=== PATIENT | female | born 1990 | race American Indian/Alaskan Native ===

== ENCOUNTER 2017-08-29 23:47 | Inpatient (IN) | payer MEDICAID, OTHER ==
[2017-08-30 00:55] LABS: Eosinophils % (Auto) 2.1 % (0.0-4.3); Hematocrit 26.2 % (30.3-42.9); Hemoglobin 8.1 gm/dl (10.1-14.3); Mean Corpuscular HGB Conc 31 % (30-34); Platelet Count 443 K/mm3 (140-440); Red Blood Count 4.07 M/mm3 (3.65-5.03); Red Cell Distribution Width 16.6 % (13.2-15.2); White Blood Count 12.2 K/mm3 (4.5-11.0)
[2017-08-30 00:58] LABS: Mean Corpuscular Hemoglobin 20 pg (28-32); Mean Corpuscular Volume 64 fl (79-97)
[2017-08-30 01:18] LABS: Alanine Aminotransferase 14 units/L (7-56); Albumin 3.9 g/dL (3.9-5); Albumin/Globulin Ratio 0.9 %; Alkaline Phosphatase 81 units/L (35-129); Anion Gap 20 mmol/L; BUN/Creatinine Ratio 17; Bilirubin,Total < 0.20 mg/dL (0.1-1.2); Blood Urea Nitrogen 10 mg/dL (7-17); Calcium 9.3 mg/dL (8.4-10.2); Carbon Dioxide 22 mmol/L (22-30); Glucose 92 mg/dL (65-100); Lipase 15 units/L (13-60); Potassium 3.7 mmol/L (3.6-5.0); Sodium 138 mmol/L (137-145); Total Protein 8.1 g/dL (6.3-8.2)
--- NOTE | 2017-08-30 03:10 | XRay Report ---
FINAL REPORT EXAM: XR ABDOMEN 2V HISTORY: abdominal pain COMPARISON: None available. FINDINGS: Supine and upright AP views of the abdomen obtained. No gross free air. Moderate stool in the right colon. Gas is scattered within the transverse colon which appears to be within physiologic limits. Paucity of small bowel gas and gas along the left colon. No gross pathological calcifications. IMPRESSION: Moderate stool in the right colon. Nonobstructive bowel gas pattern.
[2017-08-30 08:03] LABS: Bilirubin,Urine NEG (Negative); Blood,Urine NEG (Negative); Ketones,Urine 20 mg/dL (Negative); Leukocyte Esterase,Urine MOD (Negative); Mucus,Urine 3+ /HPF; Nitrite,Urine NEG (Negative)
[2017-08-30] MEDS ORDERED: NACL 0.9% 500 ML 500 ML IV ONE (10:34)
[2017-08-30] MEDS ORDERED: DILAUDID IV ONE (10:34)
[2017-08-30] MEDS ORDERED: TYLENOL PO ONE (10:35)
--- NOTE | 2017-08-30 10:35 | Emergency Department Report ---
ED Abdominal Pain HPI - General Chief Complaint: Abdominal Pain Stated Complaint: ABD PAIN Time Seen by Provider: 08/30/17 10:26 Source: patient, RN notes reviewed Mode of arrival: Ambulatory Limitations: No Limitations - History of Present Illness Initial Comments: This is a 27-year-old female who is previously unknown to this provider, does not have a primary care doctor or data center technician. Presents to the ER complaining of acute on chronic lower abdominal pain. The pain is sharp, increases with palpation and decreases with rest. No nausea, vomiting, diarrhea, urinary symptoms. Patient reports sexual activity with one partner, denies a history of gonorrhea/chlamydia that she is aware of. MD Complaint: abdominal pain -: Gradual Location: LLQ, RLQ, R flank Radiation: back Severity: moderate Severity scale (0 -10): 7 Quality: aching Consistency: constant Improves With: rest Worsens With: movement Associated Symptoms: anorexia. denies: nausea, vomiting, diarrhea, fever, dysuria, hematemesis, hematochezia, melena, hematuria, syncope - Related Data Home Medications Medication Instructions Recorded Confirmed Last Taken Docusate Sodium [Colace] 100 mg PO BID PRN 08/30/17 08/30/17 Unknown Allergies Allergy/AdvReac Type Severity Reaction Status Date / Time No Known Allergies Allergy Verified 01/07/16 23:55 ED Review of Systems ROS: Stated complaint: ABD PAIN Other details as noted in HPI Constitutional: malaise Eyes: denies: eye discharge ENT: denies: epistaxis Respiratory: denies: cough Cardiovascular: denies: chest pain Gastrointestinal: abdominal pain Genitourinary: denies: hematuria, discharge Musculoskeletal: back pain Skin: denies: lesions Neurological: weakness Psychiatric: anxiety ED Past Medical Hx - Past Medical History Hx Hypertension: No Hx Congestive Heart Failure: No Hx Diabetes: No Hx Deep Vein Thrombosis: No Hx Renal Disease: No Hx Sickle Cell Disease: No Hx Seizures: No Hx Asthma: Yes (last attack as a child) Hx COPD: No Hx HIV: No Additional medical history: Anemia, - Surgical History Past Surgical History?: No - Social History Smoking Status: Never Smoker Substance Use Type: None - Medications Home Medications: Home Medications Medication Instructions Recorded Confirmed Last Taken Type Docusate Sodium [Colace] 100 mg PO BID PRN 08/30/17 08/30/17 Unknown History ED Physical Exam - General Limitations: No Limitations General appearance: alert, in no apparent distress - Head Head exam: Present: atraumatic, normocephalic - Eye Eye exam: Present: normal appearance, EOMI. Absent: nystagmus - ENT ENT exam: Present: normal exam, normal orophraynx, mucous membranes moist, normal external ear exam - Neck Neck exam: Present: normal inspection, full ROM. Absent: tenderness, meningismus - Respiratory Respiratory exam: Present: normal lung sounds bilaterally. Absent: respiratory distress, chest wall tenderness - Cardiovascular Cardiovascular Exam: Present: regular rate, normal rhythm, normal heart sounds. Absent: systolic murmur, diastolic murmur, rubs, gallop - GI/Abdominal GI/Abdominal exam: Present: soft, tenderness, normal bowel sounds. Absent: distended, guarding, rebound, rigid, pulsatile mass - External exam: Present: normal external exam Speculum exam: Present: normal speculum exam, cervical discharge, vaginal bleeding Bi-manual exam: Present: cervical motion tendernes, adnexal tenderness, uterine tenderness, other (escorted by nursing Ely Jamil). Absent: normal bi- manual exam - Extremities Exam Extremities exam: Present: normal inspection, full ROM, normal capillary refill. Absent: pedal edema, joint swelling, calf tenderness - Back Exam Back exam: Present: normal inspection, full ROM. Absent: tenderness, CVA tenderness (R), paraspinal tenderness, vertebral tenderness - Neurological Exam Neurological exam: Present: alert, oriented X3, CN II-XII intact, other ( Extraocular movements intact. Tongue midline. No facial droop. Facial sensation intact to light touch in the V1, V2, V3 distribution bilaterally. 5 and 5 strength in 4 extremities.. Sensation is intact to light touch in 4 extremities.). Absent: motor sensory deficit - Psychiatric Psychiatric exam: Present: normal affect, normal mood - Skin Skin exam: Present: warm, dry, intact, normal color. Absent: rash ED Course Vital Signs 08/29/17 08/30/17 08/30/17 23:55 00:16 06:55 Temperature 98.2 F 98 F 98.4 F Pulse Rate 124 H 112 H 99 H Respiratory 22 18 Rate Blood Pressure 113/74 113/77 119/80 Blood Pressure [Left] O2 Sat by Pulse 100 100 99 Oximetry 08/30/17 08/30/17 08/30/17 06:56 08:50 11:31 Temperature 98.4 F 98.9 F 98.3 F Pulse Rate 99 H 82 86 Respiratory 18 16 16 Rate Blood Pressure 119/80 Blood Pressure 110/70 127/73 [Left] O2 Sat by Pulse 99 100 100 Oximetry 08/30/17 08/30/17 14:06 15:18 Temperature 98.4 F Pulse Rate 92 H 82 Respiratory 16 16 Rate Blood Pressure Blood Pressure 114/65 108/66 [Left] O2 Sat by Pulse 100 100 Oximetry ED Medical Decision Making - Lab Data Result diagrams: 08/30/17 00:26 08/30/17 00:26 Vital Signs 08/29/17 08/30/17 08/30/17 23:55 00:16 06:55 Temperature 98.2 F 98 F 98.4 F Pulse Rate 124 H 112 H 99 H Respiratory 22 18 Rate Blood Pressure 113/74 113/77 119/80 Blood Pressure [Left] O2 Sat by Pulse 100 100 99 Oximetry 08/30/17 08/30/17 08/30/17 06:56 08:50 11:31 Temperature 98.4 F 98.9 F 98.3 F Pulse Rate 99 H 82 86 Respiratory 18 16 16 Rate Blood Pressure 119/80 Blood Pressure 110/70 127/73 [Left] O2 Sat by Pulse 99 100 100 Oximetry Lab Results 08/30/17 08/30/17 08/30/17 Range/Units 00:26 00:26 00:26 WBC 12.2 H (4.5-11.0) K/mm3 RBC 4.07 (3.65-5.03) M/mm3 Hgb 8.1 L (10.1-14.3) gm/dl Hct 26.2 L (30.3-42.9) % MCV 64 L (79-97) fl MCH 20 L (28-32) pg MCHC 31 (30-34) % RDW 16.6 H (13.2-15.2) % Plt Count 443 H (140-440) K/mm3 Lymph % (Auto) 25.1 (13.4-35.0) % [place] % (Auto) 5.8 (0.0-7.3) % Eos % (Auto) 2.1 (0.0-4.3) % Baso % (Auto) 1.0 (0.0-1.8) % Lymph # 3.1 (1.2-5.4) K/mm3 [place] # 0.7 (0.0-0.8) K/mm3 Eos # 0.3 (0.0-0.4) K/mm3 Baso # 0.1 (0.0-0.1) K/mm3 Seg Neutrophils % 66.0 (40.0-70.0) % Seg Neutrophils # 8.0 H (1.8-7.7) K/mm3 Sodium 138 (137-145) mmol/L Potassium 3.7 (3.6-5.0) mmol/L Chloride 100.0 (98-107) mmol/L Carbon Dioxide 22 (22-30) mmol/L Anion Gap 20 mmol/L BUN 10 (7-17) mg/dL Creatinine 0.6 L (0.7-1.2) mg/dL Estimated GFR > 60 ml/min BUN/Creatinine Ratio 17 % Glucose 92 (65-100) mg/dL Lactic Acid (0.7-2.0) mmol/L Calcium 9.3 (8.4-10.2) mg/dL Total Bilirubin < 0.20 (0.1-1.2) mg/dL AST 15 (5-40) units/L ALT 14 (7-56) units/L Alkaline Phosphatase 81 (35-129) units/L Total Protein 8.1 (6.3-8.2) g/dL Albumin 3.9 (3.9-5) g/dL Albumin/Globulin Ratio 0.9 % Lipase 15 (13-60) units/L HCG, Qual Negative (Negative) Urine Color (Yellow) Urine Turbidity (Clear) Urine pH (5.0-7.0) Ur Specific [place] (1.003-1.030) Urine Protein (Negative) mg/dL Urine Glucose (UA) (Negative) mg/dL Urine Ketones (Negative) mg/dL Urine Blood (Negative) Urine Nitrite (Negative) Urine Bilirubin (Negative) Urine Urobilinogen (<2.0) mg/dL Ur Leukocyte Esterase (Negative) Urine WBC (Auto) (0.0-6.0) /HPF Urine RBC (Auto) (0.0-6.0) /HPF U Epithel Cells (Auto) (0-13.0) /HPF Calcium Oxalate Crystal Urine Mucus /HPF 12/06/17 12/06/17 Range/Units 06:23 12:21 WBC (4.5-11.0) K/mm3 RBC (3.65-5.03) M/mm3 Hgb (10.1-14.3) gm/dl Hct (30.3-42.9) % MCV (79-97) fl MCH (28-32) pg MCHC (30-34) % RDW (13.2-15.2) % Plt Count (140-440) K/mm3 Lymph % (Auto) (13.4-35.0) % [place] % (Auto) (0.0-7.3) % Eos % (Auto) (0.0-4.3) % Baso % (Auto) (0.0-1.8) % Lymph # (1.2-5.4) K/mm3 [place] # (0.0-0.8) K/mm3 Eos # (0.0-0.4) K/mm3 Baso # (0.0-0.1) K/mm3 Seg Neutrophils % (40.0-70.0) % Seg Neutrophils # (1.8-7.7) K/mm3 Sodium (137-145) mmol/L Potassium (3.6-5.0) mmol/L Chloride (98-107) mmol/L Carbon Dioxide (22-30) mmol/L Anion Gap mmol/L BUN (7-17) mg/dL Creatinine (0.7-1.2) mg/dL Estimated GFR ml/min BUN/Creatinine Ratio % Glucose (65-100) mg/dL Lactic Acid 0.90 (0.7-2.0) mmol/L Calcium (8.4-10.2) mg/dL Total Bilirubin (0.1-1.2) mg/dL AST (5-40) units/L ALT (7-56) units/L Alkaline Phosphatase (35-129) units/L Total Protein (6.3-8.2) g/dL Albumin (3.9-5) g/dL Albumin/Globulin Ratio % Lipase (13-60) units/L HCG, Qual (Negative) Urine Color Yellow (Yellow) Urine Turbidity Clear (Clear) Urine pH 6.0 (5.0-7.0) Ur Specific [place] 1.030 (1.003-1.030) Urine Protein 30 mg/dl (Negative) mg/dL Urine Glucose (UA) Neg (Negative) mg/dL Urine Ketones 20 (Negative) mg/dL Urine Blood Neg (Negative) Urine Nitrite Neg (Negative) Urine Bilirubin Neg (Negative) Urine Urobilinogen 2.0 (<2.0) mg/dL Ur Leukocyte Esterase Mod (Negative) Urine WBC (Auto) 28.0 H (0.0-6.0) /HPF Urine RBC (Auto) 15.0 (0.0-6.0) /HPF U Epithel Cells (Auto) 1.0 (0-13.0) /HPF Calcium Oxalate Crystal 2+ Urine Mucus 3+ /HPF - Radiology Data Radiology results: report reviewed, image reviewed CT scan of the abdomen and pelvis with IV contrast: 2 mm nonobstructing right renal calculus. No evidence of stone in the visible ureters. Nonspecific moderate pelvic fluid. Trace free fluid noted in the left paracolic gutter. The right adnexa, 2 cystic foci with moderately thick rim enhancement, hydrosalpinx versus pyosalpinx versus hemorrhagic cyst. Possible paralytic ileus Ordering Physician: ROYCE BOYCE MD Date of Service: 08/30/17 Procedure(s): CT abdomen pelvis w con Accession Number(s): [id number] cc: ROYCE BOYCE MD FINAL REPORT EXAM: CT ABDOMEN PELVIS W CON HISTORY: abd pain TECHNIQUE: CT examination of the ABDOMEN after IV contrast CT examination of the PELVIS after IV contrast PRIORS: Abdomen radiographs 08/30/2017 FINDINGS: Small calcified granuloma right lower the lung. Normal-appearing liver, gallbladder, adrenals, pancreas, and spleen. Intact normal caliber abdominal aorta and IVC. 2 mm nonobstructing right renal calculus. 1 mm and 2 mm nonobstructing left renal calculi. No evidence of calculus or distention in the visible ureteral segments. Pelvic ureters obscured by adjacent anatomy. Very small fat containing umbilical hernia. Normal-appearing stomach and duodenum. No small bowel distention in the abdomen and pelvis. There is nonspecific moderate pelvic free fluid. Trace free fluid is also noted in the left pericolic gutter. Slight fluid is noted in the right pericolic gutter and adjacent to the liver. This fluid may be reactive. Nonspecific calcification in the posterior uterine fundus appears to coincide with a fundal bulge suggesting a nodule. This may be a fibroid. Nonspecific small 15 mm cyst in left adnexa may be a normal follicle. In the right adnexa, there are 2 cystic foci with moderately thick rim enhancement. One measures 23 mm and the other 29 mm. These may be hemorrhagic cysts. They may be contiguous and the differential includes hydrosalpinx or pyosalpinx. Normal-appearing rectum and sigmoid colon. No free air or colonic distention. Normal-appearing cecum, terminal ileum, and appendix. Nonspecific slight prominence of gas and caliber in the transverse colon may reflect mild paralytic ileus. IMPRESSION: Ring-enhancing cystic foci in the right adnexa may be ovarian hemorrhagic cysts. Free fluid in the abdomen and pelvis may be reactive from pelvic inflammatory disease or reflect fluid from ruptured cysts. Given rim enhancement of 2 adjacent right adnexal cysts, and possible contiguity, the differential includes hydrosalpinx and/or pyosalpinx Small simple appearing cystic focus in the left adnexa may be a normal follicle Prominent gas and caliber of the transverse colon may reflect mild paralytic ileus Nonobstructing bilateral renal calculi Transcribed By: BAL Dictated By: RUTH EVANS MD Electronically Authenticated By: RUTH EVANS MD Signed Date/Time: 08/30/17 0739 - Medical Decision Making Differential diagnosis, including not limited to: Pelvic inflammatory disease, urinary tract infection, sepsis Assessment and plan: 27-year-old female with leukocytosis, heart rate greater than 90, abdominal tenderness, no urinary symptoms, CT scan and physical exam findings suggesting pelvic inflammatory disease, possible early pyosalpinx/ pelvic abscess. Patient will be loaded with ceftriaxone, and the mycin, Flagyl as she ruled in for trichomoniasis. She is given a normal saline bolus at 30 mL /kg, lactic acid, blood cultures ordered. Case presented to data center technician motion picture printer, Dr. Mahmood, who accepts patient to her service. Critical care attestation.: If time is entered above; I have spent that time in minutes in the direct care of this critically ill patient, excluding procedure time. ED Disposition Clinical Impression: PID (acute pelvic inflammatory disease), Sepsis Disposition: OP ADMIT IP TO THIS HOSP Is pt being admited?: Yes Condition: Good
[2017-08-30] MEDS ORDERED: NACL ONE (10:43)
[2017-08-30] MEDS ORDERED: ZOFRAN IV ONE (10:55)
--- NOTE | 2017-08-30 11:31 | Cat Scan Report ---
FINAL REPORT EXAM: CT ABDOMEN PELVIS W CON HISTORY: abd pain TECHNIQUE: CT examination of the ABDOMEN after IV contrast CT examination of the PELVIS after IV contrast PRIORS: Abdomen radiographs 08/30/2017 FINDINGS: Small calcified granuloma right lower the lung. Normal-appearing liver, gallbladder, adrenals, pancreas, and spleen. Intact normal caliber abdominal aorta and IVC. 2 mm nonobstructing right renal calculus. 1 mm and 2 mm nonobstructing left renal calculi. No evidence of calculus or distention in the visible ureteral segments. Pelvic ureters obscured by adjacent anatomy. Very small fat containing umbilical hernia. Normal-appearing stomach and duodenum. No small bowel distention in the abdomen and pelvis. There is nonspecific moderate pelvic free fluid. Trace free fluid is also noted in the left pericolic gutter. Slight fluid is noted in the right pericolic gutter and adjacent to the liver. This fluid may be reactive. Nonspecific calcification in the posterior uterine fundus appears to coincide with a fundal bulge suggesting a nodule. This may be a fibroid. Nonspecific small 15 mm cyst in left adnexa may be a normal follicle. In the right adnexa, there are 2 cystic foci with moderately thick rim enhancement. One measures 23 mm and the other 29 mm. These may be hemorrhagic cysts. They may be contiguous and the differential includes hydrosalpinx or pyosalpinx. Normal-appearing rectum and sigmoid colon. No free air or colonic distention. Normal-appearing cecum, terminal ileum, and appendix. Nonspecific slight prominence of gas and caliber in the transverse colon may reflect mild paralytic ileus. IMPRESSION: Ring-enhancing cystic foci in the right adnexa may be ovarian hemorrhagic cysts. Free fluid in the abdomen and pelvis may be reactive from pelvic inflammatory disease or reflect fluid from ruptured cysts. Given rim enhancement of 2 adjacent right adnexal cysts, and possible contiguity, the differential includes hydrosalpinx and/or pyosalpinx Small simple appearing cystic focus in the left adnexa may be a normal follicle Prominent gas and caliber of the transverse colon may reflect mild paralytic ileus Nonobstructing bilateral renal calculi
[2017-08-30] MEDS ORDERED: ROCEPHIN/NS 1 GM/50 ML 1 GM/50 ML BAG IV ONE (12:05)
[2017-08-30] MEDS ORDERED: NACL 0.9% 1000 ML 2,000 ML IV ONE (12:05)
[2017-08-30] MEDS ORDERED: NACL 0.9% 1000 ML 1,000 ML IV ONE (12:05)
[2017-08-30] MEDS ORDERED: cefTRIAXone 1 GM in NACL 0.9% 20 ML IV ONE (13:00)
[2017-08-30] MEDS ORDERED: FLAGYL PO STA (13:06)
[2017-08-30] MEDS ORDERED: CLEOCIN 600 MG/50 mL 600 MG/50 ML BAG IV ONE (13:16)
[2017-08-30] MEDS: TORADOL IV PRN (18:52)
[2017-08-30] MEDS: D5/0.45NS 1,000 ML IV SCH (18:52)
[2017-08-30] MEDS ORDERED: MILK OF MAGNESIA PO ONE (20:00)
[2017-08-30] MEDS: CLEOCIN 600 MG/50 mL 600 MG/50 ML BAG IV SCH (21:46)
[2017-08-30] MEDS: ZOFRAN IV PRN (21:46)
[2017-08-31] MEDS: TORADOL IV PRN ×2 (04:24→14:47)
[2017-08-31] MEDS: D5/0.45NS 1,000 ML IV SCH ×2 (04:26→23:10)
[2017-08-31] MEDS: CLEOCIN 600 MG/50 mL 600 MG/50 ML BAG IV SCH ×3 (06:11→22:58)
[2017-08-31] MEDS: ZOFRAN IV PRN ×2 (06:11→14:47)
--- NOTE | 2017-08-31 21:25 | History and Physical Report ---
History of Present Illness Date of examination: 08/30/17 Date of admission: 08/30/17 13:19 Chief complaint: Pelvic pain History of present illness: Patient is a27 year old female who presents with a 3 week history of pelvic pain which appeared to worsen on the morning of 08/30/17. She was admitted by the ED for suspected PID. Her wbc was 12 and she received antibiotics in the ED. She reports no bowel movement in the past 3 weeks except for a small amount. Past History Past Medical History: no pertinent history Past Surgical History: no surgical history - Obstetrical History : 3 Medications and Allergies Allergies Allergy/AdvReac Type Severity Reaction Status Date / Time No Known Allergies Allergy Verified 01/07/16 23:55 Home Medications Medication Instructions Recorded Confirmed Last Taken Type Docusate Sodium [Colace] 100 mg PO BID PRN 08/30/17 08/30/17 Unknown History Active Meds: Active Medications Clindamycin HCl (Cleocin 600 Mg/50 Ml) 600 mg in 50 mls @ 100 mls/hr IV Q8HR MARTINEZ Last Admin: 08/31/17 15:06 Dose: 100 mls/hr Dextrose/Sodium Chloride (D5/0.45ns) 1,000 mls @ 75 mls/hr IV DIRECT MARTINEZ Last Admin: 08/31/17 04:26 Dose: 75 mls/hr Ketorolac Tromethamine (Toradol) 30 mg IV Q6H PRN PRN Reason: Pain, Moderate (4-6) Stop: 09/04/17 16:51 Last Admin: 08/31/17 14:47 Dose: 30 mg Ondansetron HCl (Zofran) 4 mg IV Q8H PRN PRN Reason: Nausea And Vomiting Last Admin: 08/31/17 14:47 Dose: 4 mg Review of Systems All systems: negative Constitutional: chills, weakness, malaise Gastrointestinal: nausea, constipation, change in bowel habits Genitourinary: pelvic pain - Vital Signs Vital signs: Vital Signs Temp Pulse Resp BP Pulse Ox 98.2 F 124 H 22 113/74 100 08/29/17 23:55 08/29/17 23:55 08/29/17 23:55 08/29/17 23:55 08/29/17 23:55 Temp Pulse Resp BP Pulse Ox 99.5 F 99 H 20 107/71 100 08/31/17 16:11 08/31/17 16:11 08/31/17 18:56 08/31/17 16:11 08/31/17 16:11 - Physical Exam Cardiovascular: Regular rate Lungs: Positive: Clear to auscultation, Normal air movement Abdomen: Positive: normal appearance, soft, normal bowel sounds Genitourinary (Female): Positive: normal external genitalia, normal perenium Vagina: Positive: normal moisture Uterus: Positive: tender Results Result Diagrams: 08/31/17 21:53 08/30/17 00:26 All other labs normal. Assessment and Plan 27 year old female with suspected PID and elevated white count. Will admit for IV antibiotics. Continue to monitor.
[2017-08-31 22:12] LABS: Basophils % (Auto) 0.7 % (0.0-1.8); Eosinophils % (Auto) 2.1 % (0.0-4.3); Hematocrit 23.8 % (30.3-42.9); Hemoglobin 7.3 gm/dl (10.1-14.3); Mean Corpuscular HGB Conc 31 % (30-34); Platelet Count 416 K/mm3 (140-440); Red Blood Count 3.68 M/mm3 (3.65-5.03); Red Cell Distribution Width 16.5 % (13.2-15.2)
[2017-08-31 22:13] LABS: Mean Corpuscular Hemoglobin 20 pg (28-32); Mean Corpuscular Volume 65 fl (79-97)
[2017-09-01] MEDS: TORADOL IV PRN ×2 (00:21→12:00)
[2017-09-01] MEDS: CLEOCIN 600 MG/50 mL 600 MG/50 ML BAG IV SCH (05:12)
--- NOTE | 2017-09-01 07:04 | Progress Note ---
Assessment and Plan HD 2 with PID. Doing well. Repeat CBC on yesterday evening reported a normal white count. Patient to be discharged on today. Subjective - Subjective Date of service: 09/01/17 Interval history: Patient is a27 year old female who presents with a 3 week history of pelvic pain which appeared to worsen on the morning of 08/30/17. She was admitted by the ED for suspected PID. Her wbc was 12 and she received antibiotics in the ED. She reports no bowel movement in the past 3 weeks except for a small amount. patient reports a marked improvement on today. Her pain is resolved and she is feeling much better Patient reports: appetite normal, voiding normally, pain well controlled, ambulating normally Objective - Vital Signs Latest vital signs: Vital Signs Temp Pulse Resp Resp BP Pulse Ox 09/01/17 06:50 98.7 F 84 15 122/85 100 09/01/17 00:21 16 08/31/17 22:00 20 08/31/17 20:37 98.7 F 16 123/77 08/31/17 18:56 20 08/31/17 16:11 99.5 F 99 H 18 107/71 100 08/31/17 15:17 16 08/31/17 08:18 99.3 F 87 16 113/76 100 08/31/17 08:15 20 08/31/17 08:00 20 Intake and Output 08/31/17 09/01/17 09/01/17 22:59 06:59 14:59 Intake Total 2230 50 Output Total 6 Balance 2224 50 Intake: IV 1050 50 CLEOCIN 600 MG/50 mL 600 50 50 mg In 50 ml @ 100 mls/hr IV Q8HR MARTINEZ Rx#:[id number] D5/0.45NS 1,000 ml @ 75 1000 mls/hr IV DIRECT MARTINEZ Rx#:[id number] Oral 1180 Output: Urine 6 Void 6 Other: Total, Intake Amount 0 Total, Output Amount 6 Voiding Method Toilet Toilet # Voids Void 5 # Bowel Movements 0 - Exam Breasts: Present: deferred Cardiovascular: Present: Regular rate, Normal S1, Normal S2 Lungs: Present: Clear to auscultation, Normal air movement Abdomen: Present: normal appearance, soft, normal bowel sounds Uterus: Present: normal Extremities: Present: normal - Labs Labs: Abnormal lab results 08/31/17 Range/Units 21:53 Hgb 7.3 L (10.1-14.3) gm/dl Hct 23.8 L (30.3-42.9) % MCV 65 L (79-97) fl MCH 20 L (28-32) pg RDW 16.5 H (13.2-15.2) %
--- NOTE | 2017-09-01 07:10 | Discharge Summary ---
Providers - Providers Date of Admission: 08/30/17 13:19 Date of discharge: 09/01/17 Attending physician: FLIP MCKENZIE Primary care physician: STEVE PEARSON MD Hospitalization Reason for admission: PID Hospital course: Much improved Disposition: DC-01 TO HOME OR SELFCARE Core Measure Documentation - Palliative Care Palliative Care/ Comfort Measures: Not Applicable - Core Measures Any of the following diagnoses?: none - VTE Discharge Requirements Deep Vein Thrombosis/Pulmonary Embolism Present on Admission: No Has pt received <5 days of overlap therapy or INR<2.0: No Anticoagulant overlap therapy prescribed at discharge: No Contraindication No Overlap Therapy order at DC: Not Indicated - Acute GA Discharge Requirements Aspirin at discharge: No Reason for no aspirin on DC: Medical contraindication THADDEUS/ARB for LVSD if EF <40%: Not Applicable Reason for no THADDEUS/ARB: Patient refusal Beta nel at discharge: No Reason for no beta nel on DC: Patient refusal Statin for LDL = or >100 mg/dl on DC: Not Applicable Reason for no statin on DC: Patient refusal - Heart Failure Discharge Requirements THADDEUS/ARB for LVSD if EF <40%: Not Applicable Beta nel at discharge: No Reason for no beta nel on DC: Patient refusal - Stroke Discharge Requirements Statin for LDL = or >70 mg/dl on DC: Not Applicable Reason for no statin on DC: Not Indicated Anticoag for atrial fib/atrial flutter: Not Applicable Reason for no anticoag for AF/F on DC: Not Indicated Antithrombotic for ischemic stroke: No Reason for no antithrombotic on DC: Not Indicated Exam - Constitutional Vitals: Temp Pulse Resp BP Pulse Ox 98.7 F 84 15 122/85 100 09/01/17 06:50 09/01/17 06:50 09/01/17 06:50 09/01/17 06:50 09/01/17 06:50 General appearance: Present: no acute distress, well-nourished - EENT Eyes: Present: PERRL ENT: hearing intact, clear oral mucosa - Respiratory Respiratory effort: normal Respiratory: bilateral: CTA - Cardiovascular Rhythm: regular Heart Sounds: Present: S1 & S2. Absent: rub, click - Extremities Extremities: no ischemia, pulses symmetrical, No edema Plan Activity: advance as tolerated Weight Bearing Status: Weight Bear as Tolerated Diet: regular Follow up with: PRIMARY CAREMD [Primary Care Provider] - 14 Days
[2017-09-01] MEDS: ZOFRAN IV PRN (11:59)
[2017-09-01] MEDS: D5/0.45NS 1,000 ML IV SCH (12:07)
[2017-09-01 15:09] VITALS: BP 118/80
== END 2017-09-01 16:00 | disposition home or self-care (01) | DRG 872 ==
LOC: ED 23:47 → 3A 08-30 13:19
PROVIDERS: ADMIT Obstetrics & Gynecology; ATTEND Obstetrics & Gynecology
DX: A41.9 Sepsis, unspecified organism (principal); N73.0 Acute parametritis and pelvic cellulitis; F41.9 Anxiety disorder, unspecified; J45.909 Unspecified asthma, uncomplicated; N20.0 Calculus of kidney; K42.9 Umbilical hernia without obstruction or gangrene; Z79.899 Other long term (current) drug therapy
CPT/HCPCS: 36415; 74020; 74177; 80053; 81001; 82140; 83690; 84703; 85025; 87040; 87210; 87591; 96374; 96375; 99285; J0696; J1170; J1885; J2405; J7030; J7040; Q9967